=== PATIENT | male | born 1930 | race Caucasian/White ===

== ENCOUNTER → 2018-03-09 | Outpatient (CLI) | payer MEDICARE | END | disposition home or self-care (01) | LOC: RAH 13:30 | PROVIDERS: ATTEND Internal Medicine Critical Care Medicine | DX: J44.9 Chronic obstructive pulmonary disease, unspecified (principal); J98.11 Atelectasis; M85.88 Other specified disorders of bone density and structure, other site; M47.894 Other spondylosis, thoracic region | CPT/HCPCS: 71046 ==

== ENCOUNTER → 2018-03-16 | Outpatient (CLI) | payer MEDICARE | END | disposition home or self-care (01) | LOC: RAH 12:17 | PROVIDERS: ATTEND Internal Medicine Critical Care Medicine | DX: J44.9 Chronic obstructive pulmonary disease, unspecified (principal); R91.8 Other nonspecific abnormal finding of lung field | CPT/HCPCS: 71250 ==

== ENCOUNTER 2019-01-25 15:04 | Inpatient (IN) | payer MEDICARE ==
[~2019-01-25] VITALS: Ht 157.5 cm; Wt 85.4 kg
[2019-01-25 15:37] LABS: BASOPHILS % (AUTO) 1.7 % (0.0-5.0); EOSINOPHILS % (AUTO) 8.2 % (0.0-8.0); HEMATOCRIT 38.2 % (42-54); LYMPHOCYTES % (AUTO) 15.7 % (21.0-51.0); MEAN CORPUSCULAR HEMOGLOBIN 32.8 pg (27.0-33.0); MEAN CORPUSCULAR HGB CONC 33.8 g/dL (32.0-36.0); MEAN CORPUSCULAR VOLUME 97.2 fL (79-99); MONOCYTES % (AUTO) 9.6 % (3.0-13.0); NEUTROPHILS % (AUTO) 64.8 % (40.0-77.0); PLATELET COUNT (AUTO) 177 K/uL (130-400); RED BLOOD CELL COUNT(AUTO) 3.93 MIL/uL (4.50-6.20); RED CELL DISTRIBUTION WIDTH 15.2 % (11.0-15.5); WHITE BLOOD COUNT (AUTO) 7.8 K/uL (4.8-10.8)
[2019-01-25] MEDS ORDERED: IPRATROPIUM/ALBUTEROL SULFATE 3 ML SOLUTION IH ONE (15:45)
[2019-01-25 15:56] LABS: INR 1.02 (0.85-1.15); PARTIAL THROMBOPLASTIN TIME 27.3 SEC (26.3-35.5); PROTHROMBIN TIME 10.7 SEC (9.6-11.6)
[2019-01-25 16:00] LABS: CARBON DIOXIDE 21 mmol/L (21-32); CHLORIDE 107 mmol/L (101-111); CREATININE 1.7 mg/dL (0.5-1.5); GLOMERULAR FILTR. RATE CALC 41 mL/min (>60); GLUCOSE,RANDOM 75 mg/dL (70-105); POTASSIUM 4.9 mmol/L (3.5-5.1); SODIUM SERUM 141 mmol/L (136-145); UREA NITROGEN, BLOOD 24 mg/dL (7-18)
[2019-01-25 16:12] LABS: ALANINE AMINOTRANSFERASE 16 U/L (12-78); ALBUMIN 3.1 g/dL (3.5-5.0); ASPARTATE AMINOTRANSFERASE 23 U/L (10-37); BILIRUBIN,TOTAL 1.5 mg/dL (0.2-1.0); CREATINE KINASE, TOTAL 47 U/L (21-232); MYOGLOBIN 95 ng/mL (10-92); TOTAL PROTEIN, SERUM 6.7 g/dL (6.0-8.3); TROPONIN I < 0.04 ng/mL (0.00-0.06)
[2019-01-25] MEDS ORDERED: METHYLPREDNISOLONE SOD SUCC 125MG/2ML VIAL ONE (16:30)
[2019-01-25] MEDS ORDERED: SODIUM CHLORIDE 0.9% 1000ML 1,000 ML IV ONE (16:30)
[2019-01-25] MEDS ORDERED: ZOSYN 3.375GM+NS 50ML 50 ML IV ONE (16:30)
[2019-01-25] MEDS ORDERED: DOXYCYCLINE HYCLATE 100 MG TABLET PO ONE (16:30)
[2019-01-25 17:19] LABS: APPEARANCE,URINE Clear (CLEAR); BILIRUBIN,URINE Negative (NEGATIVE); COLOR,URINE Yellow (YELLOW); GLUCOSE, URINE (UA) Negative (NEGATIVE); KETONES,URINE Negative (NEGATIVE); LEUKOCYTE ESTERASE ,URINE Negative (NEGATIVE); NITRATE,URINE Negative (NEGATIVE); OCCULT BLOOD,URINE Negative (NEGATIVE); PROTEIN,URINE Negative (NEGATIVE); UROBILINOGEN,URINE 0.2 mg/dL (0.2-1.0)
[2019-01-25 17:20] LABS: RAPID GROUP A STREP NEGATIVE (NEGATIVE)
[2019-01-25] MEDS: SODIUM CHLORIDE 0.9% 1000ML 1,000 ML IV SCH (17:34)
[2019-01-25] MEDS: METHYLPREDNISOLONE SOD SUCC 125MG/2ML VIAL IV SCH (17:45)
[2019-01-25] MEDS ORDERED: VANCOMYCIN PROTOCOL PER PHARMACY IV PRN (17:45)
[2019-01-25] MEDS ORDERED: ONDANSETRON HCL 4 MG/2 ML VIAL IV PRN (17:45)
[2019-01-25] MEDS: MEROPENEM 500 MG VIAL IV SCH (17:45)
[2019-01-25] MEDS: DOXYCYCLINE 100MG+NS 250ML 250 ML IV SCH (17:45)
[2019-01-25] MEDS ORDERED: ACETAMINOPHEN 325 MG TAB PO PRN ×2 (17:45)
[2019-01-25] MEDS ORDERED: LACTULOSE 20 GM/30 ML UDCUP PO PRN (17:45)
[2019-01-25] MEDS ORDERED: MORPHINE SULFATE 2 MG/ML 1ML SYG IV PRN (17:45)
[2019-01-25] MEDS ORDERED: VANCOMYCIN 1.25 GM in SODIUM CHLORIDE 0.9% 250 ML IV SCH (18:00)
[2019-01-25] MEDS ORDERED: COMPOUND IV REFRIGERATED 1 EACH IVSOLN MISC PRN (18:15)
[2019-01-25] MEDS: IPRATROPIUM/ALBUTEROL SULFATE 3 ML SOLUTION IH SCH ×2 (18:36→23:58)
[2019-01-25] MEDS ORDERED: VANCOMYCIN 1GM+NS 250ML 250 ML IV ONE (18:40)
[2019-01-25] MEDS ORDERED: ENOXAPARIN SODIUM 40 MG/0.4 ML SYRINGE SQ ONE (18:40)
[2019-01-25] MEDS ORDERED: MEROPENEM 500 MG VIAL ONE (18:40)
[2019-01-25] MEDS ORDERED: SODIUM CHLORIDE 0.9% 100 ML IV ONE (18:41)
[2019-01-25 22:57] LABS: CREATINE KINASE, TOTAL 51 U/L (21-232); MYOGLOBIN 97 ng/mL (10-92); TROPONIN I < 0.04 ng/mL (0.00-0.06)
[2019-01-26] MEDS: SODIUM CHLORIDE 0.9% 1000ML 1,000 ML IV SCH ×3 (01:34→17:18)
[2019-01-26] MEDS: METHYLPREDNISOLONE SOD SUCC 125MG/2ML VIAL IV SCH ×3 (01:45→17:18)
[2019-01-26] MEDS: MEROPENEM 500 MG VIAL IV SCH ×3 (01:45→17:18)
[2019-01-26 02:21] LABS: CREATINE KINASE, TOTAL 47 U/L (21-232); MYOGLOBIN 92 ng/mL (10-92); TROPONIN I < 0.04 ng/mL (0.00-0.06)
[2019-01-26] MEDS: DOXYCYCLINE 100MG+NS 250ML 250 ML IV SCH ×2 (05:45→17:17)
[2019-01-26] MEDS ORDERED: IPRATROPIUM/ALBUTEROL SULFATE 3 ML SOLUTION IH ONE (06:02)
[2019-01-26] MEDS: IPRATROPIUM/ALBUTEROL SULFATE 3 ML SOLUTION IH SCH ×3 (06:04→19:05)
[2019-01-26] MEDS ORDERED: SODIUM CHLORIDE 3% FOR INHALATION 4 ML/AMP VIAL.NEB IH ONE ×3 (06:45→18:18)
[2019-01-26] MEDS ORDERED: SODIUM CHLORIDE 0.9% 1000ML 1,000 ML IV ONE (07:04)
[2019-01-26] MEDS ORDERED: METHYLPREDNISOLONE SOD SUCC 40MG/ML 1ML ONE (07:12)
[2019-01-26] MEDS ORDERED: MEROPENEM 500 MG VIAL ONE (07:12)
[2019-01-26] MEDS ORDERED: FAMOTIDINE/PF 20 MG/2 ML VIAL IV ONE (07:13)
[2019-01-26] MEDS ORDERED: DOXYCYCLINE 100MG+NS 250ML 250 ML IV ONE (08:59)
[2019-01-26] MEDS: FAMOTIDINE/PF 20 MG/2 ML VIAL IV SCH (09:00)
[2019-01-26 09:43] LABS: CREATINE KINASE, TOTAL 52 U/L (21-232); MYOGLOBIN 116 ng/mL (10-92); TROPONIN I < 0.04 ng/mL (0.00-0.06)
[2019-01-26 11:28] VITALS: BP 160/69
[2019-01-26] MEDS: ENOXAPARIN SODIUM 40 MG/0.4 ML SYRINGE SQ SCH (12:25)
[2019-01-26 15:35] VITALS: BP 144/64
--- NOTE | 2019-01-26 16:45 | NUR ---
INITIAL MET W PT AND FAMILY - RE ORDER FOR [facility] ADMISSION LIVES W SPOUSE, HAS HOME OS, HAS BEEN TO [facility] BEFORE AND HATED IT, BUT IS WILLING TO GIVE IT A TRY- SPOUSE NO SO SURE, PENDING CULTURES AND PLAN OF CARE, PT IS INDP OF ADLS, HAS A WALKER DOES NOT USE, DRIVES AND HAS A SAFE AND ACCESSIBLE HOME' WILL FOLLOW UP IN AM RE [facility] ORDER. Addendum: 01/28/19 at 1956 by RADHA POND RN CM Amended: Links added.
[2019-01-26 20:00] VITALS: BP 129/70
[2019-01-26] MEDS: VANCOMYCIN 1.25 GM in SODIUM CHLORIDE 0.9% 250 ML IV SCH (21:00)
[2019-01-27] VITALS: BP 145/71
[2019-01-27] MEDS: MEROPENEM 500 MG VIAL IV SCH ×3 (03:51→18:05)
[2019-01-27] MEDS: METHYLPREDNISOLONE SOD SUCC 125MG/2ML VIAL IV SCH ×2 (03:51→08:51)
[2019-01-27] MEDS: SODIUM CHLORIDE 0.9% 1000ML 1,000 ML IV SCH (03:51)
[2019-01-27 04:00] VITALS: BP 144/73
[2019-01-27 05:15] LABS: MAGNESIUM 1.9 mg/dL (1.80-2.40); PHOSPHORUS 2.6 mg/dL (2.5-4.9)
[2019-01-27] MEDS: DOXYCYCLINE 100MG+NS 250ML 250 ML IV SCH ×2 (05:39→18:05)
[2019-01-27] MEDS: IPRATROPIUM/ALBUTEROL SULFATE 3 ML SOLUTION IH SCH ×4 (06:24→23:47)
[2019-01-27 08:26] VITALS: BP 150/75
[2019-01-27] MEDS: FAMOTIDINE/PF 20 MG/2 ML VIAL IV SCH (08:42)
[2019-01-27] MEDS: ENOXAPARIN SODIUM 40 MG/0.4 ML SYRINGE SQ SCH (08:45)
--- NOTE | 2019-01-27 08:48 | NUR ---
[facility]/CHOICE/ REFERRAL/ [facility] REFERRAL MADE TO [facility]. REP HERE. PENDING 3 MIDNIGHTS FOR TELE, LON, FINAL ABX CHOICE, PENDING PICC, ETC. CLINICAL SENT PENDING ACCEPTANCE Addendum: 01/28/19 at 0849 by RADHA POND RN CM Amended: Links added.
[2019-01-27 08:50] LABS: HEMATOCRIT 40.2 % (42-54); MEAN CORPUSCULAR HEMOGLOBIN 32.6 pg (27.0-33.0); MEAN CORPUSCULAR HGB CONC 33.6 g/dL (32.0-36.0); PLATELET COUNT (AUTO) 173 K/uL (130-400); RED BLOOD CELL COUNT(AUTO) 4.15 MIL/uL (4.50-6.20); RED CELL DISTRIBUTION WIDTH 15.2 % (11.0-15.5); WHITE BLOOD COUNT (AUTO) 9.8 K/uL (4.8-10.8)
[2019-01-27 08:56] LABS: CREATININE 1.4 mg/dL (0.5-1.5); POTASSIUM 4.1 mmol/L (3.5-5.1)
[2019-01-27 13:11] VITALS: BP 144/68
[2019-01-27 16:54] VITALS: BP 148/83
[2019-01-27 20:00] VITALS: BP 158/86
[2019-01-27] MEDS: METHYLPREDNISOLONE SOD SUCC 40MG/ML 1ML IVP SCH (20:36)
[2019-01-27] MEDS: VANCOMYCIN 1.25 GM in SODIUM CHLORIDE 0.9% 250 ML IV SCH (20:37)
[2019-01-28] VITALS: BP 143/81
[2019-01-28] MEDS ORDERED: MONT10TA24 PO (00:24)
[2019-01-28] MEDS ORDERED: AMLO5TAB4 PO (00:24)
[2019-01-28] MEDS ORDERED: SIMV20TA6 PO (00:24)
[2019-01-28] MEDS ORDERED: FLUT1DIS4 IH (00:24)
[2019-01-28] MEDS ORDERED: KETO5DRO82 OP (00:24)
[2019-01-28] MEDS ORDERED: PREG150C PO (00:24)
[2019-01-28] MEDS ORDERED: TIMO5DRO35 OP (00:24)
[2019-01-28] MEDS ORDERED: TERA5CAP4 PO (00:24)
[2019-01-28] MEDS ORDERED: BRINOS OD (00:24)
[2019-01-28] MEDS ORDERED: ALLO100T PO (00:24)
[2019-01-28] MEDS ORDERED: POTA10TA14 PO (00:24)
[2019-01-28] MEDS: MEROPENEM 500 MG VIAL IV SCH ×3 (01:08→16:39)
[2019-01-28 04:00] VITALS: BP 144/76
[2019-01-28] MEDS: DOXYCYCLINE 100MG+NS 250ML 250 ML IV SCH ×2 (05:11→16:39)
[2019-01-28 05:12] LABS: HEMATOCRIT 40.2 % (42-54); MEAN CORPUSCULAR HEMOGLOBIN 32.8 pg (27.0-33.0); MEAN CORPUSCULAR HGB CONC 34.1 g/dL (32.0-36.0); MEAN CORPUSCULAR VOLUME 96.1 fL (79-99); PLATELET COUNT (AUTO) 194 K/uL (130-400); RED BLOOD CELL COUNT(AUTO) 4.18 MIL/uL (4.50-6.20)
[2019-01-28 05:18] LABS: CREATININE 1.3 mg/dL (0.5-1.5); POTASSIUM 3.6 mmol/L (3.5-5.1)
[2019-01-28] MEDS: IPRATROPIUM/ALBUTEROL SULFATE 3 ML SOLUTION IH SCH ×4 (06:21→23:21)
[2019-01-28 08:00] VITALS: BP 146/73
[2019-01-28] MEDS: FAMOTIDINE/PF 20 MG/2 ML VIAL IV SCH (08:47)
[2019-01-28] MEDS: METHYLPREDNISOLONE SOD SUCC 40MG/ML 1ML IVP SCH ×2 (08:47→19:58)
[2019-01-28] MEDS: ENOXAPARIN SODIUM 40 MG/0.4 ML SYRINGE SQ SCH (08:48)
[2019-01-28] MEDS ORDERED: LACTULOSE 20 GM/30 ML UDCUP PO PRN (09:00)
[2019-01-28] MEDS: KETOROLAC TROMETHAMINE OPTH 0.5% 5ML DROPS OP SCH (09:44)
[2019-01-28] MEDS: DOCUSATE SODIUM 100 MG CAP PO SCH ×2 (10:41→19:58)
[2019-01-28] MEDS: POLYETHYLENE GLYCOL 3350 17 GM POWD.PACK PO SCH (10:41)
[2019-01-28 12:00] VITALS: BP 136/78
[2019-01-28 16:00] VITALS: BP 155/81
[2019-01-28] MEDS: PREGABALIN 75 MG CAPSULE PO SCH (19:58)
[2019-01-28 20:00] VITALS: BP 153/81
[2019-01-28] MEDS ORDERED: MONTELUKAST SODIUM 10 MG TAB PO SCH (21:00)
--- NOTE | 2019-01-28 21:40 | NUR ---
NURSING NOTE PHARMACY COMMUNICATION SPOKE WITH MAJOR IN PHARMACY. SHE INFORMED ME TO GIVE THE DOSE OF VANCOMYCIN NOW AND THEN SHE WILL MAKE THE NECESSARY CHANGES FOR THE MORNING
[2019-01-28] MEDS: VANCOMYCIN 1.25 GM in SODIUM CHLORIDE 0.9% 250 ML IV SCH (21:46)
[2019-01-29 00:04] VITALS: BP 146/80
[2019-01-29] MEDS: MEROPENEM 500 MG VIAL IV SCH ×2 (01:57→09:46)
--- NOTE | 2019-01-29 03:45 | NUR ---
Nursing Note Pt woke up confused. Pt taking off all of clothing, tele monitor and pulling at ID band and IV. Reoriented pt to where he was and what is going on. pt is unhappy about being here and having to put the monitor and gown on. Pt stated he will be taking them off again later.
[2019-01-29 04:00] VITALS: BP 149/81
[2019-01-29 05:22] LABS: HEMATOCRIT 41.3 % (42-54); MEAN CORPUSCULAR HEMOGLOBIN 32.9 pg (27.0-33.0); MEAN CORPUSCULAR HGB CONC 34.2 g/dL (32.0-36.0); MEAN CORPUSCULAR VOLUME 96.2 fL (79-99); NUCLEATED RED BLOOD CELLS 0.2 % (0.0-0.19); PLATELET COUNT (AUTO) 169 K/uL (130-400); RED CELL DISTRIBUTION WIDTH 15.4 % (11.0-15.5); WHITE BLOOD COUNT (AUTO) 10.4 K/uL (4.8-10.8)
[2019-01-29 05:30] LABS: CREATININE 1.3 mg/dL (0.5-1.5); POTASSIUM 3.7 mmol/L (3.5-5.1)
[2019-01-29] MEDS: DOXYCYCLINE 100MG+NS 250ML 250 ML IV SCH (05:45)
[2019-01-29] MEDS ORDERED: VANCOMYCIN 750MG + NS 250 ML IV SCH ×2 (06:00)
[2019-01-29] MEDS: IPRATROPIUM/ALBUTEROL SULFATE 3 ML SOLUTION IH SCH ×4 (06:00→18:14)
--- NOTE | 2019-01-29 06:00 | NUR ---
Nursing Note Paged hospitalist to inform that the pt is getting angry/violent. He is ripping his tele off, telling us "we are F##ing with his mind", he is trying to leave, he is slamming the doors and yelling at us.
--- NOTE | 2019-01-29 06:01 | NUR ---
Nursing Note Pt pulled out IV and refusing medication. doctor informed
--- NOTE | 2019-01-29 06:06 | NUR ---
Nursing Note-Hospitalist Informed the hospitalist that the pt is refusing medication, refusing to calm down, he is trying to leave, pt is confused and we are trying to reorient him but it is not working. Also informed the hospitalist that the pt stated "we are f@@ing with his mind". She stated to me "what do you want me to do?" I informed her that she is the doctor and I am informing her of his actions and that he is refusing all the orders along with trying to leave. I was given an order for one time dose of Xanax 0.5mg PO. I informed her that he stated he isn't taking anything because we keep trying to trick him and mess with him. No other orders given at this time.
--- NOTE | 2019-01-29 06:10 | NUR ---
Nursing Note-Security Security was called to come and help get the pt calmed down. Pt calmed down and stated he didn't have a choice. Security left at [id number]
[2019-01-29] MEDS ORDERED: ALPRAZOLAM 0.5 MG TABLET PO ONE (06:15)
[2019-01-29 07:30] VITALS: BP_SYST 148; BP_SYST 153; BP_DIAS 92; BP_DIAS 93
[2019-01-29] MEDS ORDERED: ALLOPURINOL 100 MG TABLET PO SCH (09:00)
[2019-01-29] MEDS ORDERED: BRINZOLAMIDE 1% 10ML DROPS.SUSP OD SCH (09:00)
[2019-01-29] MEDS: KETOROLAC TROMETHAMINE OPTH 0.5% 5ML DROPS OP SCH (09:00)
[2019-01-29] MEDS ORDERED: SIMVASTATIN 20 MG TABLET PO SCH (09:00)
[2019-01-29] MEDS ORDERED: TERAZOSIN HCL 5 MG CAPSULE PO SCH (09:00)
[2019-01-29] MEDS ORDERED: AMLODIPINE BESYLATE 5 MG TAB PO SCH (09:00)
[2019-01-29] MEDS ORDERED: POTASSIUM CHLORIDE 10 MEQ/TAB.SA PO SCH (09:00)
[2019-01-29] MEDS: METHYLPREDNISOLONE SOD SUCC 40MG/ML 1ML IVP SCH (09:46)
[2019-01-29] MEDS: POLYETHYLENE GLYCOL 3350 17 GM POWD.PACK PO SCH (09:52)
[2019-01-29] MEDS: PREGABALIN 75 MG CAPSULE PO SCH (09:52)
[2019-01-29] MEDS: DOCUSATE SODIUM 100 MG CAP PO SCH (09:53)
[2019-01-29] MEDS: ENOXAPARIN SODIUM 40 MG/0.4 ML SYRINGE SQ SCH (09:53)
[2019-01-29] MEDS: FAMOTIDINE/PF 20 MG/2 ML VIAL IV SCH (09:53)
[2019-01-29 11:00] VITALS: BP_SYST 143; BP_SYST 152; BP_DIAS 85; BP_DIAS 99
--- NOTE | 2019-01-29 17:40 | NUR ---
REPORT GIVEN TO [place] FROM [facility] .MED RECONCILaiton confirmed with facility
== END 2019-01-29 19:05 | DRG 193 ==
LOC: EDH 15:04 → EDHIP 17:34 → 3CH 01-26 10:36
PROVIDERS: ADMIT Internal Medicine; ATTEND Internal Medicine
DX: J18.9 Pneumonia, unspecified organism (principal); J96.21 Acute and chronic respiratory failure with hypoxia; J44.1 Chronic obstructive pulmonary disease with (acute) exacerbation; J44.0 Chronic obstructive pulmonary disease with (acute) lower respiratory infection; N18.3 Chronic kidney disease, stage 3 (moderate); E66.01 Morbid (severe) obesity due to excess calories; E78.5 Hyperlipidemia, unspecified; I12.9 Hypertensive chronic kidney disease with stage 1 through stage 4 chronic kidney disease, or unspecified chronic kidney disease; K59.00 Constipation, unspecified; I25.10 Atherosclerotic heart disease of native coronary artery without angina pectoris; Z68.34 Body mass index [BMI] 34.0-34.9, adult; Z87.891 Personal history of nicotine dependence; Z99.81 Dependence on supplemental oxygen; Z98.49 Cataract extraction status, unspecified eye; Z90.49 Acquired absence of other specified parts of digestive tract
CPT/HCPCS: 36415; 71045; 71250; 80048; 80053; 80202; 81003; 82550; 83605; 83735; 83874; 84100; 84484; 85025; 85027; 85610; 85730; 87040; 87071; 87088; 87205; 87486; 87581; 87633; 87798; 87804; 87880; 93005; 94640; 94664; 97039; 99291; G0378; J1650; J2185; J2543; J2920; J2930; J3370; J3490; J7030